=== PATIENT | female | born 1975 | race African-American/Black ===

== ENCOUNTER 2025-09-07 06:19 | Day surgery (SDC) | payer OTHER ==
[2025-09-07] MEDS ORDERED: LIDOCAINE 1%/EPI 1:100000 (20 ML MULTI DOSE VIAL) ONE (09:05)
[2025-09-07] MEDS ORDERED: ONDANSETRON 4 MG/2 ML VIAL IVPUSH PRN (09:07)
[2025-09-07] MEDS ORDERED: ACETAMINOPHEN 1000 MG/100 ML BAG IVPB PRN (09:08)
[2025-09-07] MEDS ORDERED: ACETAMINOPHEN 325 MG TABLET (FP) PO PRN (09:10)
[2025-09-07] MEDS ORDERED: IBUPROFEN 400 MG TABLET (FP) PO PRN (09:10)
[2025-09-07] MEDS ORDERED: LACTATED RINGERS SOLUTION 1,000 ML IV SCH (09:15)
[2025-09-07] MEDS ORDERED: PROPOFOL 20 ML ONE ×4 (09:29→10:10)
[2025-09-07] MEDS ORDERED: MIDAZOLAM HCL 2 MG/2 ML SINGLE DOSE VIAL ONE ×2 (09:30→09:35)
[2025-09-07] MEDS: LIDOCAINE 1%/EPI 1:100000 (20 ML MULTI DOSE VIAL) IJ ONE ×3 (09:45)
[2025-09-07 11:35] VITALS: RESP 18
[2025-09-07 13:31] VITALS: BP 118/71; PULSE 65; TEMP 97.1
== END 2025-09-07 12:50 | disposition home or self-care (01) ==
LOC: JASU-SURG 06:19
PROVIDERS: ATTEND Obstetrics & Gynecology
PROC: 0UBM0ZZ Excision of Vulva, Open Approach (ICD-10-PCS; principal; 2025-09-07 09:00)
DX: N90.7 Vulvar cyst (principal)
CPT/HCPCS: 81025; 86850; 86900; 86901; 94760